=== PATIENT | female | born 1990 | race Caucasian/White ===

== ENCOUNTER 2017-08-05 18:25 | Outpatient (CLI) | payer SELFPAY ==
[~2017-08-05] VITALS: Ht 157.5 cm; Wt 75.9 kg
[~2017-08-05 18:25] MED LIST: MOTRIN 600600 MG/TAB PO; PERCOCET 325 MG1 TA2 PO
[2017-08-05 18:30] VITALS: BP 121/78; PULSE 76; TEMP 98.3
[2017-08-05 19:00] VITALS: BP 109/72; PULSE 90; TEMP 98.5
== END 2017-08-05 19:05 | disposition home or self-care (01) ==
LOC: LDRO 18:25 → LDR 08-10 14:43 → EDSTATUS 08-10 18:24
DX: O36.8130 Decreased fetal movements, third trimester, not applicable or unspecified (principal); Z3A.40 40 weeks gestation of pregnancy

== ENCOUNTER 2017-08-07 18:46 | Inpatient (IN) | payer SELFPAY ==
[2017-08-07] VITALS (15 sets, daily range): BP systolic 105–131; BP diastolic 63–86; PULSE 71–99; TEMP 97.7
[~2017-08-07] VITALS: Ht 157.5 cm; Wt 75.9 kg
[2017-08-07 19:32] LABS: BASO % 0.3 % (0.0-2.0); EOS # 0.1 (0.0-0.7); EOS % 0.8 % (0-4.0); GRAN # 8.1 (1.4-6.5); HEMOGLOBIN 10.8 g/dl (12.5-16.0); LYMPH # 2.5 (1.2-3.4); LYMPH % 21.2 % (20.0-51.0); MEAN CELL VOLUME 77 fl (80.0-100.0); MEAN CORPUSCULAR HEMOGLOBIN 24 pg (27.0-31.0); MEAN CORPUSCULAR HGB CONC 31 g/dl (33.0-37.0); MEAN PLATELET VOLUME 10.2 fl (7.4-10.4); MONO % 8.1 % (1.7-9.3); PLATELET COUNT 264 K/mm3 (130-400); RED BLOOD COUNT 4.48 M/mm3 (4.10-5.30); REDCELL DISTRIBUTION WIDTH-CV 15.9 % (11.5-14.5)
[2017-08-07 19:33] LABS: HEMATOCRIT 34.5 % (37.0-47.0)
[2017-08-07] MEDS ORDERED: PRENATAL FORMU1 EAC3 PO (21:42)
[2017-08-08 01:00] VITALS: BP 104/60; PULSE 103; TEMP 97.6
[2017-08-08 05:46] VITALS: BP 105/65; PULSE 88; TEMP 97.9
[2017-08-08 09:20] VITALS: BP 134/77; PULSE 82
[2017-08-08] MEDS ORDERED: IBU600 MG PO (10:38)
[2017-08-08] MEDS ORDERED: PERCOCET 325 MG1 TA2 PO (10:38)
[2017-08-08 16:58] VITALS: BP 115/75; PULSE 89
[2017-08-08 20:00] VITALS: BP 107/77; PULSE 80; TEMP 97.6
[2017-08-09 07:39] VITALS: BP 107/81; PULSE 86; TEMP 97.7
== END 2017-08-09 11:00 | disposition home or self-care (01) | DRG 775 ==
LOC: LDRO 18:46 → LDR 19:10 → OB 23:45
PROVIDERS: Obstetrics & Gynecology
PROC: 10E0XZZ Delivery of Products of Conception, External Approach (ICD-10-PCS; principal; 2017-08-07)
DX: O71.7 Obstetric hematoma of pelvis (principal); Z3A.40 40 weeks gestation of pregnancy; Z37.0 Single live birth
CPT/HCPCS: J2400; J2590; J7120

== ENCOUNTER 2018-10-26 06:28 | Inpatient (IN) | payer OTHER ==
[2018-10-26] VITALS (33 sets, daily range): BP systolic 101–135; BP diastolic 60–80; PULSE 64–106; TEMP 97.7–98.1
[~2018-10-26] VITALS: Ht 157.5 cm; Wt 76.4 kg
[~2018-10-26 06:28] MED LIST changes: +IBU600 MG PO; +PRENATAL FORMU1 EAC3 PO
--- NOTE | 2018-10-26 07:30 | NUR ---
G4L3 at 39 weeks gestation to LDR6 with spouse for induction of labor. Patient changed into gown and wedged to left side in bed. EFMs explained and applied. FHR 130 bpm and reactive. Irregular, mild CTX per toco. VSS. Assessment completed, consents signed. IV started in left wrist with LR infusing per protocol. SVE /-2. Plan of care reviewed. Patient and spouse oriented to room and call light.
--- NOTE | 2018-10-26 07:45 | NUR ---
Pitocin started at 2mu per orders and protocol.
[2018-10-26 08:12] LABS: BASO % 0.4 % (0.0-2.0); EOS # 0.1 (0.0-0.7); EOS % 0.9 % (0-4.0); GRAN # 4.5 (1.4-6.5); GRAN % 58.6 % (42.2-75.2); HEMATOCRIT 32.7 % (37.0-47.0); LYMPH # 2.3 (1.2-3.4); LYMPH % 30.2 % (20.0-51.0); MEAN CELL VOLUME 74 fl (80.0-100.0); MEAN CORPUSCULAR HEMOGLOBIN 23 pg (27.0-31.0); MEAN CORPUSCULAR HGB CONC 31 g/dl (33.0-37.0); MEAN PLATELET VOLUME 10.4 fl (7.4-10.4); MONO # 0.7 (0.1-0.6); MONO % 9.5 % (1.7-9.3); PLATELET COUNT 228 K/mm3 (130-400); RED BLOOD COUNT 4.45 M/mm3 (4.10-5.30); REDCELL DISTRIBUTION WIDTH-CV 16.6 % (11.5-14.5)
--- NOTE | 2018-10-26 09:00 | NUR ---
Dr. Luna on unit, reviews FHR tracing, to patient room, SVE with AROM, /-2 with moderate amount of clear fluid noted.
--- NOTE | 2018-10-26 12:30 | NUR ---
Recurrent early FHR decelerations noted. Patient more uncomfortable with contractions, tense and breathing through them. SVE 5/-2. Patient denies the need for an epidural at this time.
--- NOTE | 2018-10-26 13:15 | NUR ---
1300 Patient more uncomfortable with contractions, SVE 6/-1. Dr. Luna called to come to the hospital. While on the phone with Dr. Luna, patient's comes out to the desk and states that the patient is feeling the urge to push. Dr. Luna notified. 1305 This nurse to room, SVE - complete/+2. Patient coached to breath through contractions. Pitocin turned off. Additional nursing staff at bedside for assist. 1315 Spontaneous vaginal delivery of viable male infant by this nurse. Cord clamped and cut and infant to the care of the nursery RN. Dr. Luna enters room as cord is being clamped. 1318 Sponteneous delivery of placenta by Dr. Luna. Pitocin started at 333ml/hr per orders and protocol. Fundus firm, lochia WNL. Perineum intact.
[2018-10-27 03:35] VITALS: BP 108/68; PULSE 75; TEMP 98
[2018-10-27 06:56] LABS: HEMATOCRIT 33.3 % (37.0-47.0); HEMOGLOBIN 9.9 g/dl (12.5-16.0)
[2018-10-27 07:30] VITALS: BP 111/75; PULSE 76; TEMP 97.8
--- NOTE | 2018-10-27 10:44 | NUR ---
Initial visit; Parents thanked Bookstore Manager for offering congratulations and God's blessings for the of their daughter. Bookstore Manager thanked family for choosing [facility].
[2018-10-27 16:00] VITALS: BP 119/82; PULSE 75; TEMP 97.3
[2018-10-27 21:45] VITALS: BP 117/75; PULSE 72
[2018-10-28 08:30] VITALS: BP 111/74; PULSE 71; TEMP 97.8
[2018-10-28] MEDS ORDERED: PERCOCET 325 MG1 TA2 PO (08:34)
[2018-10-28] MEDS ORDERED: MOTRIN 600600 MG/TAB PO (08:34)
== END 2018-10-28 10:00 | disposition home or self-care (01) | DRG 807 ==
LOC: LDR 06:28 → OB 06:58
PROVIDERS: ADMIT Obstetrics & Gynecology
PROC: 10E0XZZ Delivery of Products of Conception, External Approach (ICD-10-PCS; principal; 2018-10-26)
PROC: 10907ZC Drainage of Amniotic Fluid, Therapeutic from Products of Conception, Via Natural or Artificial Opening (ICD-10-PCS; 2018-10-26)
PROC: 3E033VJ Introduction of Other Hormone into Peripheral Vein, Percutaneous Approach (ICD-10-PCS; 2018-10-26)
DX: O99.62 Diseases of the digestive system complicating childbirth (principal); Z37.0 Single live birth; O62.3 Precipitate labor; K21.9 Gastro-esophageal reflux disease without esophagitis; Z3A.39 39 weeks gestation of pregnancy
CPT/HCPCS: J2590; J7120